=== PATIENT | male | born 1960 | race Hispanic/Latino ===

== ENCOUNTER 2019-01-10 13:06 | Observation (INO) | payer MEDICARE ==
[~2019-01-10] VITALS: Ht 160 cm; Wt 56.7 kg
[2019-01-10] MEDS ORDERED: HYDRALAZINE HCL 20 MG/ML VIAL ONE ×2 (13:29→18:42)
[2019-01-10 13:30] LABS: BASOPHILS % (AUTO) 1.2 % (0.0-5.0); EOSINOPHILS % (AUTO) 3.6 % (0.0-8.0); HEMATOCRIT 36.1 % (42-54); LYMPHOCYTES % (AUTO) 17.8 % (21.0-51.0); MEAN CORPUSCULAR HEMOGLOBIN 31.9 pg (27.0-33.0); MEAN CORPUSCULAR HGB CONC 33.6 g/dL (32.0-36.0); MEAN CORPUSCULAR VOLUME 94.9 fL (79-99); MONOCYTES % (AUTO) 6.2 % (3.0-13.0); NEUTROPHILS % (AUTO) 71.2 % (40.0-77.0); NUCLEATED RED BLOOD CELLS 0.1 % (0.0-0.19); PLATELET COUNT (AUTO) 171 K/uL (130-400); RED BLOOD CELL COUNT(AUTO) 3.81 MIL/uL (4.50-6.20); RED CELL DISTRIBUTION WIDTH 14.7 % (11.0-15.5); WHITE BLOOD COUNT (AUTO) 5.7 K/uL (4.8-10.8)
[2019-01-10 13:34] LABS: CREATININE 5.7 mg/dL (0.5-1.5); POTASSIUM 4.2 mmol/L (3.5-5.1)
[2019-01-10 13:38] LABS: ALBUMIN 4.2 g/dL (3.5-5.0); BILIRUBIN,TOTAL 0.8 mg/dL (0.2-1.0); INR 0.97 (0.85-1.15); PROTHROMBIN TIME 10.2 SEC (9.6-11.6); TOTAL PROTEIN, SERUM 7.7 g/dL (6.0-8.3)
[2019-01-10] MEDS ORDERED: LABETALOL 20 MG/4 ML DISP.SYRIN IV ONE (15:21)
[2019-01-10] MEDS ORDERED: ACETAMINOPHEN 325 MG TAB PO PRN ×2 (16:15)
[2019-01-10] MEDS ORDERED: DESMOPRESSIN ACETATE IJ SCH (16:15)
[2019-01-10] MEDS ORDERED: ONDANSETRON HCL 4 MG/2 ML VIAL IV PRN (16:15)
[2019-01-10] MEDS ORDERED: SODIUM CHLORIDE 0.9% IJ SCH (16:15)
[2019-01-10] MEDS ORDERED: HYDRALAZINE HCL 20 MG/ML VIAL IV PRN (16:15)
[2019-01-10] MEDS ORDERED: PHARMACY COMMUNICATION MISC SCH (16:15)
[2019-01-10] MEDS ORDERED: FAMOTIDINE/PF 20 MG/2 ML VIAL IV ONE (17:38)
[2019-01-10 19:07] VITALS: BP 162/73
[2019-01-11 00:36] VITALS: BP 140/64
[2019-01-11 03:20] VITALS: BP 141/66
[2019-01-11 03:29] LABS: MEAN CORPUSCULAR HEMOGLOBIN 31.3 pg (27.0-33.0); MEAN CORPUSCULAR HGB CONC 33.2 g/dL (32.0-36.0); MEAN CORPUSCULAR VOLUME 94.3 fL (79-99); PLATELET COUNT (AUTO) 145 K/uL (130-400); RED BLOOD CELL COUNT(AUTO) 3.08 MIL/uL (4.50-6.20); RED CELL DISTRIBUTION WIDTH 14.7 % (11.0-15.5); WHITE BLOOD COUNT (AUTO) 5.2 K/uL (4.8-10.8)
[2019-01-11 03:43] LABS: CREATININE 6.5 mg/dL (0.5-1.5); PHOSPHORUS 3.7 mg/dL (2.5-4.9); POTASSIUM 3.6 mmol/L (3.5-5.1)
[2019-01-11 07:30] VITALS: BP 138/59
[2019-01-11] MEDS ORDERED: CARV12.511 PO (08:38)
[2019-01-11] MEDS ORDERED: LISI10TA7 PO (08:38)
[2019-01-11] MEDS ORDERED: AMLO10TA7 PO (08:38)
[2019-01-11] MEDS ORDERED: METF-444 PO (08:38)
[2019-01-11] MEDS ORDERED: ATOR10TA69 PO (08:38)
[2019-01-11] MEDS ORDERED: FAMOTIDINE/PF 20 MG/2 ML VIAL IV SCH (09:00)
[2019-01-11 10:48] VITALS: BP 139/60
[2019-01-11] MEDS ORDERED: NITROGLYCERIN 0.4 MG SL TAB SL PRN (12:15)
[2019-01-11] MEDS ORDERED: LIDOCAINE HCL-MPF 1% 2ML VIAL IJ PRN (12:15)
[2019-01-11] MEDS ORDERED: 0.9% SODIUM CHLORIDE 1000 ML IV BAG IV PRN (12:15)
[2019-01-11] MEDS ORDERED: ACETAMINOPHEN 325 MG TAB PO PRN (12:15)
[2019-01-11] MEDS ORDERED: SODIUM CHLORIDE 0.9% 1000ML 1,000 ML IV PRN (12:15)
[2019-01-11 15:10] VITALS: BP 156/67
[2019-01-11] MEDS ORDERED: METFORMIN HCL 500 MG TABLET PO SCH (17:00)
[2019-01-11] MEDS ORDERED: CARVEDILOL 12.5 MG TABLET PO SCH (21:00)
[2019-01-11] MEDS ORDERED: LISINOPRIL 10 MG TABLET PO SCH (21:00)
[2019-01-11] MEDS ORDERED: ATORVASTATIN CALCIUM 10 MG TABLET PO SCH (21:00)
[2019-01-11] MEDS ORDERED: AMLODIPINE BESYLATE 5 MG TAB PO SCH (21:00)
== END 2019-01-11 18:00 | disposition home or self-care (01) ==
LOC: EDH 13:06 → INTOOBSV 16:05 → EDHIP 16:05 → 2AH 18:43
PROVIDERS: ADMIT Internal Medicine; ATTEND Internal Medicine
DX: T82.838A Hemorrhage due to vascular prosthetic devices, implants and grafts, initial encounter (principal); I12.0 Hypertensive chronic kidney disease with stage 5 chronic kidney disease or end stage renal disease; N18.6 End stage renal disease; M79.601 Pain in right arm; E11.22 Type 2 diabetes mellitus with diabetic chronic kidney disease; E78.2 Mixed hyperlipidemia; D69.9 Hemorrhagic condition, unspecified; Y83.9 Surgical procedure, unspecified as the cause of abnormal reaction of the patient, or of later complication, without mention of misadventure at the time of the procedure; Y92.89 Other specified places as the place of occurrence of the external cause; Z87.891 Personal history of nicotine dependence; Z99.2 Dependence on renal dialysis
CPT/HCPCS: G0257 ×48; 36415; 71045; 80048; 80053; 82948; 84100; 85025; 85027; 85610; 85730; 90935; 93005; 93971; 96374; G0378; J0360; J2597; J3490; J7030

== ENCOUNTER 2020-07-06 15:21 | Emergency (ER) | payer MEDICARE ==
[~2020-07-06 15:21] MED LIST: AMLO-258 PO; ATOR10TA69 PO; CARV12.511 PO; LISI10TA7 PO; METF-444 PO
[2020-07-06] MEDS ORDERED: ONDANSETRON HCL 4 MG/2 ML VIAL ONE (15:54)
[2020-07-06] MEDS ORDERED: SODIUM CHLORIDE 0.9% 100 ML IV ONE (15:55)
[2020-07-06 15:59] LABS: BASOPHILS % (AUTO) 0.2 % (0.0-5.0); EOSINOPHILS % (AUTO) 0.1 % (0.0-8.0); HEMATOCRIT 34.4 % (42-54); LYMPHOCYTES % (AUTO) 12.2 % (21.0-51.0); MEAN CORPUSCULAR HEMOGLOBIN 28.7 pg (27.0-33.0); MEAN CORPUSCULAR VOLUME 89.8 fL (79-99); MONOCYTES % (AUTO) 5.4 % (3.0-13.0); NEUTROPHILS % (AUTO) 81.9 % (40.0-77.0); PLATELET COUNT (AUTO) 198 K/uL (130-400); RED BLOOD CELL COUNT(AUTO) 3.83 MIL/uL (4.50-6.20); RED CELL DISTRIBUTION WIDTH 14.1 % (11.0-15.5); WHITE BLOOD COUNT (AUTO) 9.6 K/uL (4.8-10.8)
[2020-07-06 16:21] LABS: APPEARANCE,URINE CLOUDY (CLEAR); BILIRUBIN,URINE NEGATIVE (NEGATIVE); COLOR,URINE YELLOW (YELLOW); GLUCOSE, URINE (UA) 500 mg/dL (NEGATIVE); KETONES,URINE NEGATIVE (NEGATIVE); LEUKOCYTE ESTERASE ,URINE MODERATE (NEGATIVE); NITRATE,URINE NEGATIVE (NEGATIVE); OCCULT BLOOD,URINE LARGE (NEGATIVE); PROTEIN,URINE >=300 mg/dL (NEGATIVE); UROBILINOGEN,URINE 0.2 mg/dL (0.2-1.0)
[2020-07-06 16:30] LABS: BACTERIA,URINE Rare /HPF (None Seen); WBC,URINE >100 /HPF (0-1)
[2020-07-06 16:32] LABS: SQUAMOUS EPITHELIAL CELL,UR Rare /HPF (0-2); TRANSITIONAL EPI CELLS,URINE Rare /HPF (None Seen)
[2020-07-06 16:45] LABS: CREATININE 4.4 mg/dL (0.5-1.5); POTASSIUM 3.5 mmol/L (3.5-5.1)
[2020-07-06 16:49] LABS: ALBUMIN 2.6 g/dL (3.5-5.0); BILIRUBIN,TOTAL 0.3 mg/dL (0.2-1.0); TOTAL PROTEIN, SERUM 7.4 g/dL (6.0-8.3)
[2020-07-06] MEDS ORDERED: SODIUM CHLORIDE 0.9% 50 ML IV ONE (17:15)
[2020-07-06] MEDS ORDERED: CEFTRIAXONE SODIUM 1 GM ONE (17:15)
== END 2020-07-06 19:01 | disposition home or self-care (01) ==
LOC: EDH 15:21
DX: N30.00 Acute cystitis without hematuria (principal); R11.2 Nausea with vomiting, unspecified; I12.0 Hypertensive chronic kidney disease with stage 5 chronic kidney disease or end stage renal disease; N18.6 End stage renal disease; E11.22 Type 2 diabetes mellitus with diabetic chronic kidney disease; Z87.891 Personal history of nicotine dependence; Z88.1 Allergy status to other antibiotic agents
CPT/HCPCS: 36415; 73600; 73630; 74176; 80053; 81001; 85025; 87088; 93005; 96365; 96366 ×2; 96375; 99285; J0696; J2405

== ENCOUNTER → 2020-07-22 | Outpatient (CLI) | payer MEDICARE ==
--- NOTE | 2020-07-22 11:05 | NUR ---
MBSS COMPLETED. +S/S OF ASPIRATION WITH THIN LIQUIDS VIA CUP. RECOMMEND MECHANICAL SOFT/CHOPPED SOLIDS, NECTAR THICK LIQUIDS, PILLS WHOLE TOLERATED. BOX MACHINE OPERATOR PROVIDED RESULTS AND RECOMMENDATIONS TO PATIENT AND , DEBI, PRESENT DURING EVALUATION. PATIENT AND VOICED UNDERSTANDING OF RISKS AND CONSEQUENCES OF ASPIRATION. PATIENT COMPLAINED OF NASAL DRAINAGE DURING P.O. INTAKE; NO NASAL REGURGITATION NOTED DURING STUDY. BOX MACHINE OPERATOR RECOMMENDED ENT CONSULT, GI CONSULT, AND SPEECH THERAPY TO ADDRESS ORAL AND PHARYNGEAL DYSPHAGIA. Addendum: 07/22/[address] [facility] Amended: Links added.
== END | disposition home or self-care (01) ==
LOC: RAH 10:27
PROVIDERS: ATTEND Internal Medicine Gastroenterology
DX: R13.13 Dysphagia, pharyngeal phase (principal); R63.3 Feeding difficulties
CPT/HCPCS: 74230; 92611